=== PATIENT | female | born 1965 | race Hispanic/Latino ===

== ENCOUNTER 2024-06-20 19:56 | Emergency (ER) | payer OTHER ==
[~2024-06-20] VITALS: Ht 157.5 cm; Wt 72.6 kg
[~2024-06-20 19:56] MED LIST: CYCLOBENZAPRINE5 MG PO; DICYCLOMINE HCL20 MG PO; ONDANSETRON ODT4 MG SL
[2024-06-20 20:00] VITALS: PULSE 105; RESP 18; TEMP 98
[2024-06-20] MEDS ORDERED: CEFDINIR300 MG PO (21:31)
[2024-06-20] MEDS: CEFTRIAXONE 1 GM VIAL IM ONE (21:35)
[2024-06-20 22:55] VITALS: BP 156/84; PULSE 82; RESP 18; TEMP 98.3; O2SAT 100
== END 2024-06-20 21:46 | disposition home or self-care (01) ==
LOC: FSED 20:05
DX: R30.0 Dysuria (principal); C50.919 Malignant neoplasm of unspecified site of unspecified female breast; L65.8 Other specified nonscarring hair loss; T45.1X5A Adverse effect of antineoplastic and immunosuppressive drugs, initial encounter; I10 Essential (primary) hypertension; E11.9 Type 2 diabetes mellitus without complications; E78.5 Hyperlipidemia, unspecified; Z87.19 Personal history of other diseases of the digestive system
CPT/HCPCS: 81003; 87086; 87186; 99283; J0696

== ENCOUNTER 2024-10-29 06:27 | Emergency (ER) | payer OTHER ==
[~2024-10-29] VITALS: Ht 157.5 cm; Wt 75.3 kg
[~2024-10-29 06:27] MED LIST changes: +CEFDINIR300 MG PO
[2024-10-29 06:30] VITALS: PULSE 94; RESP 18; TEMP 99.2
[2024-10-29 07:16] VITALS: BP 148/83; PULSE 94; RESP 18; TEMP 99.2; O2SAT 97
== END 2024-10-29 07:18 | disposition home or self-care (01) ==
LOC: FSED 06:31
DX: R51.9 Headache, unspecified (principal); R09.89 Other specified symptoms and signs involving the circulatory and respiratory systems; I10 Essential (primary) hypertension; E11.9 Type 2 diabetes mellitus without complications; Z11.52 Encounter for screening for COVID-19; Z85.3 Personal history of malignant neoplasm of breast
CPT/HCPCS: 0223U; 83518 ×2; 87400; 99283